=== PATIENT | male | born 1950 | race Caucasian/White ===

== ENCOUNTER → 2020-12-15 | Day surgery (SDC) | payer OTHER ==
[~2020-12-15] MED LIST: GLYBURIDE 5MG TA5 MG PO; LISINOPRIL-HCT1 EAC1 PO; METFORMIN HCL500 MG PO; NORCO 5-325 TA1 EACH PO; NORVASC5 MG PO; ONDANSETRON ODT8 MG PO; ZOCOR20 MG PO
[2020-12-15 10:31] LABS: HCT 40.1 % (42.0-52.0); HGB 13.3 g/dl (13.2-18.0); MCH 29.2 pg (25.0-31.0); MCHC 33.2 g/dL (32.0-36.0); MCV 87.9 fL (78.0-100.0); MPV 9.4 fL (6.0-9.5); RBC 4.56 M/uL (4.70-6.00); RDW 13.5 % (11.5-14.0); WBC 10.1 K/uL (4.0-10.5)
[2020-12-15 10:54] LABS: ALBUMIN 2.9 g/dL (3.4-5.0); BILIRUBIN - TOTAL 0.3 mg/dL (0.2-1.0); BUN/CREAT RATIO (CALC) 30.3 RATIO; CREATININE 0.66 mg/dL (0.67-1.17); GLOBULIN (CALCULATION) 4.4 g/dL; POTASSIUM 3.6 mmol/L (3.5-5.1); TOTAL PROTEIN 7.3 g/dL (6.4-8.2)
== END | disposition home or self-care (01) ==
LOC: FAS 09:54
PROVIDERS: Surgery
DX: I87.2 Venous insufficiency (chronic) (peripheral) (principal); C34.90 Malignant neoplasm of unspecified part of unspecified bronchus or lung; I10 Essential (primary) hypertension; E78.00 Pure hypercholesterolemia, unspecified; F17.210 Nicotine dependence, cigarettes, uncomplicated; Z20.822 Contact with and (suspected) exposure to COVID-19; Z79.84 Long term (current) use of oral hypoglycemic drugs; Z45.2 Encounter for adjustment and management of vascular access device; Z80.3 Family history of malignant neoplasm of breast
CPT/HCPCS: 36415; 71045; 80053; 93005; C1788; J0690; J1644; J2250; J2370; J2405; J2704; J3010; J7120

== ENCOUNTER 2021-07-07 14:54 | Emergency (ER) | payer OTHER ==
[2021-07-07 16:13] LABS: BASOPHIL 0.4 % (0-2); EOSINOPHIL 0.8 % (0-7); HCT 38.9 % (42.0-52.0); HGB 12.6 g/dl (13.2-18.0); LYMPHOCYTE 7.1 % (15-48); MCH 30.1 pg (25.0-31.0); MCHC 32.4 g/dL (32.0-36.0); MCV 93.1 fL (78.0-100.0); MONOCYTE 7.2 % (0-12); MPV 9.4 fL (6.0-9.5); NEUTROPHIL 82.6 % (41-80); NRBC 0; PLT 422 K/uL (150-400); RBC 4.18 M/uL (4.70-6.00); RDW 12.7 % (11.5-14.0); WBC 14.6 K/uL (4.0-10.5)
[2021-07-07 16:38] LABS: ALBUMIN 1.8 g/dL (3.4-5.0); ALKALINE PHOSHATASE 123 U/L (46-116); ALT 30 U/L (16-63); AST 26 U/L (15-37); BILIRUBIN - TOTAL 0.4 mg/dL (0.2-1.0); BUN 35 mg/dL (7-18); C-REACTIVE PROTEIN > 18.00 mg/dL (<=0.90); CHLORIDE 95 mmol/L (98-107); CO2 (BICARBONATE) 29 mmol/L (21-32); CPK 101 U/L (39-308); GLOBULIN (CALCULATION) 5.5 g/dL; GLUCOSE 356 mg/dL (74-106); MAGNESIUM 2.5 mg/dL (1.8-2.4); POTASSIUM 4.3 mmol/L (3.5-5.1); TOTAL PROTEIN 7.3 g/dL (6.4-8.2)
[2021-07-07 18:17] LABS: BILIRUBIN NEGATIVE (NEGATIVE); BLOOD 1+ Ery/uL (NEGATIVE); CLARITY CLEAR (CLEAR); COLOR YELLOW (YELLOW); GLUCOSE (U) 2+ mg/dL (NORMAL); LEUKOCYTES NEGATIVE Leu/uL (NEGATIVE); NITRITE NEGATIVE (NEGATIVE); PROTEIN TRACE (LOW) mg/dL (NEGATIVE); SPECIFIC GRAVITY 1.015 (1.001-1.030); UROBILINOGEN 0.2 mg/dL (0.2-1.0); pH 5.5 (5.0-9.0)
[2021-07-07 18:24] LABS: BACTERIA TRACE
[2021-07-07] MEDS ORDERED: NORCO 5-325 TA1 EACH PO (18:58)
== END 2021-07-07 19:16 | disposition home or self-care (01) ==
LOC: FER 14:54
PROVIDERS: Emergency Medicine
DX: M54.16 Radiculopathy, lumbar region (principal); F17.210 Nicotine dependence, cigarettes, uncomplicated
CPT/HCPCS: 36415; 72128; 72131; 72193; 80053; 81001; 82550; 83735; 84145; 85025; 86140; J1170; J2405; J7030; Q9967